=== PATIENT | male | born 1985 | race Caucasian/White ===

== ENCOUNTER 2017-09-07 03:48 | Emergency (ER) | payer OTHER ==
[2017-09-07 04:19] VITALS: BP 147/91; PULSE 92; TEMP 97; BMI 26.8
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
== END 2017-09-07 05:16 | disposition home or self-care (01) ==
LOC: JER 03:48
DX: Z77.21 Contact with and (suspected) exposure to potentially hazardous body fluids (principal); Y35.811A Legal intervention involving manhandling, law enforcement official injured, initial encounter; Y93.89 Activity, other specified; Y92.89 Other specified places as the place of occurrence of the external cause; Y99.0 Civilian activity done for income or pay
CPT/HCPCS: 99281-25

== ENCOUNTER 2019-04-26 22:05 | Emergency (ER) | payer OTHER | END 2019-04-26 22:32 | disposition home or self-care (01) | LOC: JER 22:05 ==